=== PATIENT | female | born 1995 | race Caucasian/White ===

== ENCOUNTER 2017-11-10 10:45 | Emergency (ER) | payer BC, OTHER ==
[~2017-11-10] VITALS: Ht 165.1 cm; Wt 77.0 kg
[2017-11-10 10:49] VITALS: Ht 165.1 cm; Wt 77.0 kg
[2017-11-10 12:20] LABS: BASO % 0.4 %; BASO ABS # 0.03 K/uL (0-0.2); EOS % 2.6 %; EOS ABS # 0.18 K/uL (0-0.5); HEMATOCRIT 40.2 % (37-47); IG# 0.01 K/uL (0.00-0.02); LYMPH % 30.1 %; LYMPH ABS # 2.11 K/uL (1.2-3.4); MEAN CORPUSCULAR HEMOGLOBIN 30.6 pg (25-34); MEAN CORPUSCULAR HGB CONC 34.8 g/dl (32-36); MEAN PLATELET VOLUME 9.1 fL (7.4-10.4); MONO % 7.5 %; MONO ABS # 0.53 K/uL (0.11-0.59); NEUT % 59.3 %; NEUT ABS # 4.16 K/uL (1.4-6.5); PLATELET COUNT 190 K/uL (130-400); RED CELL DISTRIBUTION WIDTH CV 12.2 % (11.5-14.5); RED CELL DISTRIBUTION WIDTH SD 39.3 fL (36.4-46.3); WHITE BLOOD COUNT 7.02 K/uL (4.8-10.8)
[2017-11-10 12:34] LABS: ALBUMIN 4.2 gm/dl (3.4-5.0); ALT/SGPT 21 U/L (12-78); BLOOD UREA NITROGEN 11 mg/dl (7-18); CALCIUM 9.3 mg/dl (8.5-10.1); CARBON DIOXIDE 31 mmol/L (21-32); CREATININE 0.61 mg/dl (0.60-1.20); GLUCOSE 91 mg/dl (70-99); POTASSIUM 3.6 mmol/L (3.5-5.1); SODIUM 138 mmol/L (136-145)
[2017-11-10 12:37] LABS: ALKALINE PHOSPHATASE 45 U/L (45-117); AST/SGOT 15 U/L (15-37); CKMB < 0.5 ng/ml (0.5-3.6); TOTAL PROTEIN 7.8 gm/dl (6.4-8.2)
--- NOTE | 2017-11-10 14:06 | DIAGNOSTIC IMAGING REPORT ---
SINUSES-MAXILLOFACIAL W/O HISTORY: 22 years-old Female Headache, frontal pain, sinus congestion continued acute fever with sinus infection COMPARISON: None available TECHNIQUE: Multiple axial CT images of the maxillofacial bones were obtained without IV contrast. A dose lowering technique was used consistent with the principals of CATALINA. FINDINGS: The imaged intracranial structures demonstrate no acute abnormality. Mastoid air cells and middle ear cavities appear clear bilaterally. There is mild mucosal thickening of the maxillary and ethmoid sinuses. The frontal and sphenoid sinuses appear generally clear. No large pascual bullosa. Minimal rightward bowing and spurring of the nasal septum. No evidence of maxillary ostiomeatal occlusive disease. There is mild mucosal thickening of the right maxillary ostiomeatal unit. Orbits appear intact. Small bilateral David cells are noted. There is no acute facial bone fracture or dislocation. Nasopharynx appears patent. Mild nonspecific prominence of the bilateral palatine tonsils. No significant soft tissue swelling or drainable fluid collection. The imaged teeth appear unremarkable. IMPRESSION: 1. Mild mucosal thickening of the ethmoid and maxillary sinuses resulting in minimal narrowing of the right maxillary ostiomeatal unit. 2. Bilateral David cells. 3. No significant soft tissue swelling or drainable fluid collection identified. The above report was generated using voice recognition software. It may contain grammatical, syntax or spelling errors. Electronically signed by: Jalil Clark M.D. 11/10/2017 2:04 PM Dictated Date/Time: 11/10/2017 2:00 PM
--- NOTE | 2017-11-10 15:03 | EMERGENCY ROOM VISIT NOTE ---
History First contact with patient: 11:24 Chief Complaint: HEADACHE Stated Complaint: SEVERE HEADACHES, FEVER, EAR FULLNESS, SINUS INFEC History of Present Illness The patient is a 22 year old female who presents to the Emergency Room via private vehicle referred by [facility] with complaints of "severe headaches, fever, ear fullness, sinus infection". The patient states that for about 1.5 weeks now she has been experiencing sinus congestion. Minimal dizziness. She also notes fever minimally at 99F yesterday and today. This morning she woke up the headache was severe. She was seen by [facility] 4 days ago, diagnosed with sinusitis and was started on Augmentin 12 days. She notes that she called [facility] this AM to report her headache and they referred her here. She notes she has tried ibuprofen with minimal relief. She notes the frontal region as well as overlying the maxillary sinuses are the location of pain as well as minimal pain in the occipital region. She denies neck stiffness. Review of Systems A complete 10-point Review of Systems was discussed with the patient, with pertinent positives and negatives listed in the History of Present Illness. All remaining Review of Systems questions can be considered negative unless otherwise specified. Past Medical/Surgical History Medical Problems: (1) No significant medical problems Surgical Problems: (1) No significant past surgical history Social History Smoking Status: Never Smoker Alcohol Use: none Marital Status: single Occupation Status: employed Current/Historical Medications No Active Prescriptions or Reported Meds Physical Exam Vital Signs Date Time Temp Pulse Resp B/P (MAP) Pulse Ox O2 Delivery O2 Flow Rate FiO2 11/10/17 15:12 37.1 76 20 113/86 100 11/10/17 14:43 76 20 113/86 100 Room Air 11/10/17 13:28 72 20 108/72 100 Room Air 11/10/17 10:49 37.1 79 16 137/88 98 Room Air Physical Exam VITAL SIGNS - Vital signs and nursing notes were reviewed. Stable. Afebrile. GENERAL -22-year-old female appearing her stated age who is in no acute distress. She is nontoxic in appearance. Communicates well with provider and answers questions appropriately. SKIN - Without rashes. No particular meningeal rash. HEAD - NC/AT. EYES - PERRL with EOMI bilaterally. Sclera anicteric. EARS - No deformities of external structures noted on gross examination bilaterally. Slight fullness behind the right TM suggesting serous otitis media. NOSE - Midline and without cyanosis. No epistaxis or purulent drainage noted. MOUTH/OROPHARYNX - Without perioral cyanosis. Buccal mucosa pink and moist and without leukoplakia. Tongue midline with equal elevation of palate bilaterally. Right tonsillar hypertrophy greater than left. No exudates. NECK - Neck with FROM. Supple to palpation. No lymphadenopathy noted. No nuchal rigidity. LUNGS - Chest wall symmetric without accessory muscle use, intercostals retractions, or central cyanosis. Normal vesicular breath sounds CTA B/L. No wheezes, rales, or rhonchi appreciated. CARDIAC - RRR with S1/S2. No murmur, rubs, or gallops appreciated. EXTREMITIES - No clubbing or peripheral cyanosis. No pretibial edema present. + 5/5 strength noted in UE/LE bilaterally. NEUROLOGIC - Cranial nerves II through XII grossly intact. Sensory intact to light touch throughout. PSYCH - A&O, and cooperates fully with examiner. Pt is very pleasant and interacts well with examiner. Medical Decision & Procedures ER Provider Diagnostic Interpretation: SINUSES-MAXILLOFACIAL W/O HISTORY: 22 years-old Female Headache, frontal pain, sinus congestion continued acute fever with sinus infection COMPARISON: None available TECHNIQUE: Multiple axial CT images of the maxillofacial bones were obtained without IV contrast. A dose lowering technique was used consistent with the principals of ALARA. FINDINGS: The imaged intracranial structures demonstrate no acute abnormality. Mastoid air cells and middle ear cavities appear clear bilaterally. There is mild mucosal thickening of the maxillary and ethmoid sinuses. The frontal and sphenoid sinuses appear generally clear. No large pascual bullosa. Minimal rightward bowing and spurring of the nasal septum. No evidence of maxillary ostiomeatal occlusive disease. There is mild mucosal thickening of the right maxillary ostiomeatal unit. Orbits appear intact. Small bilateral David cells are noted. There is no acute facial bone fracture or dislocation. Nasopharynx appears patent. Mild nonspecific prominence of the bilateral palatine tonsils. No significant soft tissue swelling or drainable fluid collection. The imaged teeth appear unremarkable. IMPRESSION: 1. Mild mucosal thickening of the ethmoid and maxillary sinuses resulting in minimal narrowing of the right maxillary ostiomeatal unit. 2. Bilateral David cells. 3. No significant soft tissue swelling or drainable fluid collection identified. The above report was generated using voice recognition software. It may contain grammatical, syntax or spelling errors. Electronically signed by: Jalil Clark M.D. 11/10/2017 2:04 PM Dictated Date/Time: 11/10/2017 2:00 PM Laboratory Results 11/10/17 11:35 Red Blood Count 4.57, Mean Corpuscular Volume 88.0, Mean Corpuscular Hemoglobin 30.6, Mean Corpuscular Hemoglobin Concent 34.8, Mean Platelet Volume 9.1, Neutrophils (%) (Auto) 59.3, Lymphocytes (%) (Auto) 30.1, Monocytes (%) (Auto) 7.5, Eosinophils (%) (Auto) 2.6, Basophils (%) (Auto) 0.4, Neutrophils # (Auto) 4.16, Lymphocytes # (Auto) 2.11, Monocytes # (Auto) 0.53, Eosinophils # (Auto) 0.18, Basophils # (Auto) 0.03 11/10/17 11:35 Test 11/10/17 11:35 11/10/17 11:55 White Blood Count 7.02 K/uL (4.8-10.8) Red Blood Count 4.57 M/uL (4.2-5.4) Hemoglobin 14.0 g/dL (12.0-16.0) Hematocrit 40.2 % (37-47) Mean Corpuscular Volume 88.0 fL (80-100) Mean Corpuscular Hemoglobin 30.6 pg (25-34) Mean Corpuscular Hemoglobin Concent 34.8 g/dl (32-36) Platelet Count 190 K/uL (130-400) Mean Platelet Volume 9.1 fL (7.4-10.4) Neutrophils (%) (Auto) 59.3 % Lymphocytes (%) (Auto) 30.1 % Monocytes (%) (Auto) 7.5 % Eosinophils (%) (Auto) 2.6 % Basophils (%) (Auto) 0.4 % Neutrophils # (Auto) 4.16 K/uL (1.4-6.5) Lymphocytes # (Auto) 2.11 K/uL (1.2-3.4) Monocytes # (Auto) 0.53 K/uL (0.11-0.59) Eosinophils # (Auto) 0.18 K/uL (0-0.5) Basophils # (Auto) 0.03 K/uL (0-0.2) RDW Standard Deviation 39.3 fL (36.4-46.3) RDW Coefficient of Variation 12.2 % (11.5-14.5) Immature Granulocyte % (Auto) 0.1 % Immature Granulocyte # (Auto) 0.01 K/uL (0.00-0.02) Erythrocyte Sedimentation Rate 6 mm/hr (0-21) Anion Gap 3.0 mmol/L (3-11) Est Creatinine Clear Calc Drug Dose 147.2 ml/min Estimated GFR () 148.1 Estimated GFR (Non- 127.8 BUN/Creatinine Ratio 17.7 (10-20) Calcium Level 9.3 mg/dl (8.5-10.1) Magnesium Level 2.2 mg/dl (1.8-2.4) Total Bilirubin 0.5 mg/dl (0.2-1) Aspartate Amino Transf (AST/SGOT) 15 U/L (15-37) Alanine Aminotransferase (ALT/SGPT) 21 U/L (12-78) Alkaline Phosphatase 45 U/L (45-117) Total Creatine Kinase 65 U/L (26-192) Creatine Kinase MB < 0.5 ng/ml (0.5-3.6) Creatine Kinase MB Ratio (0-3.0) C-Reactive Protein < 0.29 mg/dl (0-0.29) Total Protein 7.8 gm/dl (6.4-8.2) Albumin 4.2 gm/dl (3.4-5.0) Globulin 3.6 gm/dl (2.5-4.0) Albumin/Globulin Ratio 1.2 (0.9-2) Lyme Disease IgG Antibody NEG (NEG) Lyme Disease IgM Antibody NEG (NEG) Urine Color YELLOW Urine Appearance CLEAR (CLEAR) Urine pH 7.5 (4.5-7.5) Urine Specific [place] 1.005 (1.000-1.030) Urine Protein NEG (NEG) Urine Glucose (UA) NEG (NEG) Urine Ketones NEG (NEG) Urine Occult Blood NEG (NEG) Urine Nitrite NEG (NEG) Urine Bilirubin NEG (NEG) Urine Urobilinogen NEG (NEG) Urine Leukocyte Esterase NEG (NEG) Urine Test NEG (NEG) Medical Decision Patient was seen and evaluated as above. She presents to us today with a headache. It is in the frontal and maxillary sinus region predominantly. She is nontoxic on exam. After obtaining a thorough history and physical examination the above work up was performed. No significant leukocytosis, or metabolic abnormality. CT scan of the sinuses was obtained after discussing benefit versus risk, and these are essentially negative for any emergent process. I suspect sinusitis. I suspect that she likely is just experiencing increased pressure in the sinuses from this. She is already on Augmentin. She was offered lumbar puncture which I do not believe is necessary. She was also seen by the attending physician. The patient was educated upon management, had questions answered prior to discharge, and was discharged home in good condition. She is to follow with the family doctor or return with worsening. No evidence of meningitis on exam. She is able to move the neck in all directions without any stiffness or difficulty. Negative Kernig and Bruayleenki. In the evaluation and treatment of this patient, the following differential diagnoses were considered: Migraine Headache, Intracranial Hemorrhage, Subdural Hematoma, Subarachnoid Hemorrhage, Cerebral Aneurysm, Temporal/Giant Cell Arteritis, Tension Headache, Meningitis, Encephalitis, or Hydrocephalus. Impression Primary Impression: Headache Additional Impression: Sinus congestion Departure Information Dispostion Home / Self-Care Condition GOOD Prescriptions No Active Prescriptions or Reported Meds Referrals No Doctor, Assigned (PCP) Patient Instructions My [facility] Additional Instructions You have been treated in the Emergency Department for a Headache. Augmentin as previously prescribed. For pain control, you can use the following [id number] medicines (if >12 yo): - Regular strength (325mg/tab) Tylenol (acetaminophen) 2 tabs every 4-6 hours as needed. Do not exceed 12 tablets in a 24 hour period. Avoid taking more than 3 grams (3000 mg) of Tylenol per day. This includes any other sources of acetaminophen you may take on a regular basis. - Regular strength (200 mg/tab) Advil (ibuprofen) 1-2 tabs every 4-6 hours as needed. Do not exceed a dose of 3200 mg per day. Pseudophed over the counter Medicaine as indicated on package for a few days to help with congestion You should relax in a quiet, dark place for the rest of the day You should schedule a follow-up appointment in 2-3 days with your Primary Care Provider Return to the Emergency Department if your current symptoms worsen despite treatment course outlined above, or if you develop any of the following symptoms : intractable pain despite aforementioned treatment course, visual disturbances , loss of vision, unilateral weakness or facial drooping, slurring of speech, loss of coordination, or loss of consciousness. Problem Qualifiers
[2017-11-10 15:12] VITALS: BP 113/86; PULSE 76; TEMP 37.1; O2SAT 100
--- NOTE | 2017-11-10 16:41 | EMERGENCY ROOM VISIT NOTE ---
ED Visit Note First contact with patient: 11:24 The patient was seen and examined with Javed Narayanan PA-C. I agree with the history, physical and findings. Please see the note for disposition and details. The patient has several days of headache. She was started on Augmentin for sinusitis. Her headache is mostly frontal over the sinuses with some towards the back. She actually is feeling better today than she was earlier this morning when she called the clinic for advice. She has not had any fevers. She has no neck stiffness or meningeal findings. Clinically she looks well. We discussed the workup and treatment options. At this point time she does not have any stigmata or physical findings of meningitis or encephalitis. Her examination as noted below is benign. CT imaging shows some sinus disease but no evidence of abscess, bony destruction, or emergent findings. If she continues to do well she will finish out her antibiotics. If she worsens at all, especially over the next 12-24 hours she will be back to the emergency department for reevaluation and consideration for further testing. Patient feels very comfortable with this plan. she'll follow-up as an outpatient. I gave my usual and customary discussion regarding this issue. GENERAL: Awake, alert, non-ill appearing, no distress HEAD: Normocephalic, atraumatic. No edema. EYES: Normal conjunctiva. Sclera non-icteric. EARS: Right TM normal. Left TM normal. NOSE: Normal. OROPHARYNX: Lips, tongue, and mucosa unremarkable. No erythema or exudate. NECK: Supple. No nuchal rigidity. FROM. No adenopathy. Negative jolt accentuation test. No masses. RESPIRATORY: CTA bilaterally. No wheezes rales or rhonchi. CARDIAC: Borderline tachycardic rate. Normal rhythm. No murmurs. No rubs. GI: Soft, non distended. No tenderness to palpation. NEURO: Normal sensorium. Normal speech. Negative Kernig's sign. Negative Brudzinski's. SKIN: No rash or jaundice noted.
[2017-11-10 23:41] LABS: INFLUENZA B ANTIGEN Neg for Influ B (NEG)
== END 2017-11-10 15:13 | disposition home or self-care (01) ==
LOC: C.EDB 10:47 → C.EDC 15:13
DX: J01.00 Acute maxillary sinusitis, unspecified (principal); J01.20 Acute ethmoidal sinusitis, unspecified; R50.9 Fever, unspecified; R51 Headache